=== PATIENT | male | born 1985 | race Caucasian/White ===

== ENCOUNTER 2018-04-28 08:55 | Emergency (ER) | payer BC, OTHER ==
[~2018-04-28] VITALS: Ht 182.9 cm; Wt 81.7 kg
[~2018-04-28 08:55] MED LIST: NOHOMEMEDICATIONS; ZANTAC 150MG T150 M1 PO
[2018-04-28] MEDS ORDERED: SENNA-DOCUSATE1 EACH PO (10:37)
[2018-04-28] MEDS ORDERED: IBUPROFEN 600600 M1 PO (10:37)
[2018-04-28] MEDS ORDERED: NORCO 5-325 TA1 EACH PO (10:37)
[2018-04-28] MEDS ORDERED: FLEXERIL PO (10:37)
== END 2018-04-28 10:43 | disposition home or self-care (01) ==
LOC: ER 08:55
DX: S42.022A Displaced fracture of shaft of left clavicle, initial encounter for closed fracture (principal); F17.210 Nicotine dependence, cigarettes, uncomplicated; Z88.0 Allergy status to penicillin; V29.00XA Motorcycle driver injured in collision with unspecified motor vehicles in nontraffic accident, initial encounter; Y93.89 Activity, other specified; Y92.89 Other specified places as the place of occurrence of the external cause; Y99.8 Other external cause status

== ENCOUNTER 2018-10-26 18:53 | Emergency (ER) | payer BC, OTHER ==
[~2018-10-26] VITALS: Ht 182.9 cm; Wt 86.2 kg
[~2018-10-26 18:53] MED LIST changes: +FLEXERIL PO; +IBUPROFEN 600600 M1 PO; +NORCO 5-325 TA1 EACH PO; +SENNA-DOCUSATE1 EACH PO
[2018-10-26] MEDS ORDERED: NAPROSYN500 MG PO (18:59)
[2018-10-26 19:30] LABS: URINE BILIRUBIN NEGATIVE (Negative); URINE BLOOD NEGATIVE (Negative); URINE CLARITY CLEAR; URINE COLOR YELLOW; URINE GLUCOSE-RANDOM* NEGATIVE (Negative); URINE KETONES TRACE (Negative); URINE LEUKOCYTES-REFLEX NEGATIVE (Negative); URINE NITRITE-REFLEX NEGATIVE (Negative); URINE PROTEIN (DIPSTICK) NEGATIVE (Negative); URINE SPECIFIC GRAVITY >= 1.030 (1.005-1.035); URINE UROBILINOGEN 0.2 E.U./dl (0.2-1.0)
[2018-10-26 20:14] LABS: ABSOLUTE NEUTROPHILS 7.7 thou/uL (1.4-8.2); BASOPHILS 0.2 % (0.0-2.0); EOSINOPHILS 2.7 % (0.0-3.0); HEMATOCRIT 36.8 % (42.0-52.0); HEMOGLOBIN 12.7 gm/dL (14.0-18.0); LYMPHOCYTES 21.7 % (24.0-44.0); MCHC 34.7 g/dL (28.0-37.0); MCV 92.2 fL (80.0-100.0); MONOCYTES 5.1 % (1.0-8.0); PLATELET COUNT 206 thou/uL (150-400); POLYS 70.3 % (36.0-66.0); RBC 3.99 mil/uL (4.50-6.00); RDW 12.7 % (10.5-14.5)
[2018-10-26 20:25] LABS: CALCIUM 9.3 mg/dL (8.5-10.1); CREATININE 0.9 mg/dL (0.7-1.3); POTASSIUM 4.1 mmol/L (3.5-5.1)
[2018-10-26] MEDS ORDERED: NORCO 5-325 TA1 EACH PO (21:38)
[2018-10-26 21:53] VITALS: BP 114/72
== END 2018-10-26 21:55 | disposition home or self-care (01) ==
LOC: ER 18:53
PROVIDERS: Nurse Practitioner Family
DX: G89.18 Other acute postprocedural pain (principal); N43.3 Hydrocele, unspecified; F17.210 Nicotine dependence, cigarettes, uncomplicated; Z87.19 Personal history of other diseases of the digestive system; Z88.0 Allergy status to penicillin